=== PATIENT | male | born 1975 | race Caucasian/White ===

== ENCOUNTER 2016-08-10 00:16 | Emergency (ER) | payer OTHER ==
[2016-08-10 00:24] VITALS: TEMP 97.9
--- NOTE | 2016-08-10 00:27 | EDPHY ---
H & P Stated Complaint: choked on a pill Tues, ? aspiration. cough/URI x 2 wks. rt CP. HPI/ROS: HPI CHIEF COMPLAINT: Right-sided chest discomfort, worse with inspiration. HISTORY OF PRESENT ILLNESS: This patient is a very pleasant 41-year-old male denies any significant medical history does not take any daily medications, he presents to the emergency room with right-sided chest discomfort. Patient tells me that over the past 2 weeks he has been sick with an upper respiratory tract infection. Tells me specifically July 24 is when he developed cough , congestion and shortness of breath. At times he has been taking NyQuil. He states on Thursday he tells me took Mucinex pill and felt that the pill got stuck in the back of his throat he tells me he could feel it in the back of his throat for prolonged period of time (approximately 10 minutes) eventually he thinks he swallowed it. Patient tells me that for the past couple days he has had intermittent right-sided chest discomfort he describes as an ache and it is worse when he goes to lay flat in also worse when he takes a deep breath in. He has been coughing and has secretions he denies hemoptysis, yellow or green productive cough. He denies fever but has endorse chills. He also endorsed earlier in the week muscle aches and joint pain. No history of PE or DVT he does tell me that he has a history of a pneumothorax in high school he is unsure exactly what size. He tells me this does not feel like a recurrent pneumo. He denies arm pain, jaw pain, left-sided chest pain. Past Medical History: Pneumothorax Past Surgical History: chest tube for pneumothorax in high school Social History: denies daily use of tobacco, drugs, marijuana, alcohol he does endorse occasional alcohol use Family History: noncontributory ROS REVIEW OF SYSTEMS: A comprehensive 10 point review of systems is otherwise negative aside from elements mentioned in the history of present illness. Exam Constitutional triage nursing summary reviewed, vital signs reviewed, awake/ alert. Eyes normal conjunctivae and sclera, EOMI, PERRLA. HENT normal inspection, atraumatic, moist mucus membranes, no epistaxis, neck supple/ no meningismus, no raccoon eyes. Respiratory Specifically clear lungs bilaterally, good breath sounds right side , clear to auscultation bilaterally, normal breath sounds, no respiratory distress, no wheezing. Cardiovascular rate normal, regular rhythm, no murmur, no edema, distal pulses normal. Gastrointestinal soft, non-tender, no rebound, no guarding, normal bowel sounds, no distension, no pulsatile mass. Genitourinary no CVA tenderness. Musculoskeletal no midline vertebral tenderness, full range of motion, no calf swelling, no tenderness of extremities, no meningismus, good pulses, neurovascularly intact. Skin pink, warm, & dry, no rash, skin atraumatic. Neurologic awake, alert and oriented x 3, AAOx3, moves all 4 extremities equally, motor intact, sensory intact, CN II-XII intact, normal cerebellar, normal vision, normal speech. Psychiatric normal mood/affect. Heme/Lymph/Immune no lymphadenopathy. Differential Diagnosis: Includes but is not limited to in a particular order, upper respiratory tract infection, pneumothorax, pneumonia, pulmonary embolism, pill aspiration, doubt acute coronary syndrome, dehydration, electrolyte abnormality, influenza, pleurisy, pericarditis, myocarditis, pericardial effusion Medical Decision Making: this patient had an IV established obtain blood work, including electrolytes, patient had an EKG, chest x-ray, patient most likely need a CT angiogram of his chest rule pulmonary embolism and foreign body aspiration in his airway Re-evaluation: EKG interpretation by me on record in [employer] system. Impression time of EKG is 51, this EKG is sinus rhythm rate of 72, there is no ST elevation, ST depression, T-wave abnormality. ED x-ray chest two view this is negative for acute cardiopulmonary disease. Specifically no pneumothorax visualize, no foreign body seen, no opacification normal clear lung hathaway cardiac silhouette normal. Image interpreted by myself. CT scan of the angiogram chest. The results of the study are this is negative for pulmonary embolism however there is right middle lobe nodule left lower lobe nodule 1 cm in size the differential as fungal infection versus Kranthi's granuloma, metastatic disease The study was read by Dr. Cordova I viewed the images myself on the PACS system. 0220: the patient is resting comfortably here in emergency room in no acute distress. I went over her CT results with him. He understands he needs to follow up with pulmonology about these 2 lesions on his lungs. He does not have a pulmonary embolism is troponin is negative, his EKG is unremarkable for acute ischemia, do not have a great explanation for his right-sided pleuritic pain. There is no PE. His vital signs have been reviewed and are stable. He is comfortable going home. Source: Patient - Personal History Current Tetanus/Diphtheria Vaccine: Unsure Current Tetanus Diphtheria and Acellular Pertussis (TDAP): Unsure - Medical/Surgical History Hx Asthma: No Hx Chronic Respiratory Disease: No Hx Diabetes: No Hx Cardiac Disease: No Hx Renal Disease: No Hx Cirrhosis: No Hx Alcoholism: No Hx HIV/AIDS: No Hx Splenectomy or Spleen Trauma: No Other PMH: spontaneous pnumo 1994, wrist surgery, pericarditis years ago. - Social History Smoking Status: Never smoked Constitutional: Initial Vital Signs Temperature (C) 36.6 C 08/10/16 00:20 Heart Rate 80 08/10/16 00:20 Respiratory Rate 16 08/10/16 00:20 Blood Pressure 153/87 H 08/10/16 00:20 O2 Sat (%) 95 08/10/16 00:20 O2 Delivery Mode Room Air Allergies/Adverse Reactions: No Known Allergies Allergy (Verified 08/10/16 00:20) Home Medications: Medication Instructions Recorded Ibuprofen [Motrin (*)] 800 mg PO Q6-8PRN #30 tab 08/10/16 Medical Decision Making - Data Points Laboratory Results: Laboratory Results 08/10/16 00:45 08/10/16 00:36 08/10/16 08/10/16 08/10/16 00:45 00:40 00:36 WBC 10.59 H 10^3/uL (3.80-9.50) RBC 4.75 10^6/uL (4.40-6.38) Hgb 14.6 g/dL (13.7-17.5) Hct 42.2 % (40.0-51.0) MCV 88.8 fL (81.5-99.8) MCH 30.7 pg (27.9-34.1) MCHC 34.6 g/dL (32.4-36.7) RDW 11.0 L % (11.5-15.2) Plt Count 258 10^3/uL (150-400) MPV 9.6 fL (8.7-11.7) Neut % (Auto) 67.8 % (39.3-74.2) Lymph % (Auto) 19.5 % (15.0-45.0) [place] % (Auto) 7.7 % (4.5-13.0) Eos % (Auto) 4.3 % (0.6-7.6) Baso % (Auto) 0.4 % (0.3-1.7) Nucleat RBC Rel Count 0.0 % (0.0-0.2) Absolute Neuts (auto) 7.17 H 10^3/uL (1.70-6.50) Absolute Lymphs (auto) 2.07 10^3/uL (1.00-3.00) Absolute Monos (auto) 0.82 H 10^3/uL (0.30-0.80) Absolute Eos (auto) 0.46 H 10^3/uL (0.03-0.40) Absolute Basos (auto) 0.04 10^3/uL (0.02-0.10) Absolute Nucleated RBC 0.00 10^3/uL (0-0.01) Immature Gran % 0.3 % (0.0-1.1) Immature Gran # 0.03 10^3/uL (0.00-0.10) PT 13.5 SEC (12.0-15.0) INR 1.04 (0.83-1.16) APTT 27.7 SEC (23.0-38.0) D-Dimer 0.52 H ug/mLFEU (0.00-0.50) Sodium 144 mEq/L (134-144) Potassium 3.7 mEq/L (3.5-5.2) Chloride 105 mEq/L (97-110) Carbon Dioxide 24 mEq/l (22-31) Anion Gap 15 mEq/L (8-16) BUN 14 mg/dL (7-23) Creatinine 0.8 mg/dL (0.7-1.3) Estimated GFR > 60 Glucose 140 H mg/dL (70-100) Calcium 9.8 mg/dL (8.5-10.4) Magnesium 2.2 mg/dL (1.6-2.3) Total Bilirubin 0.7 mg/dL (0.1-1.4) Conjugated Bilirubin 0.2 mg/dL (0.0-0.5) Unconjugated Bilirubin 0.5 mg/dL (0.0-1.1) AST 33 IU/L (17-59) ALT 63 IU/L (21-72) Alkaline Phosphatase 108 IU/L (38-126) Creatine Kinase 82 IU/L (0-224) CK-MB (CK-2) Fraction < 0.22 ng/mL (0-3.19) Troponin I < 0.012 ng/mL (0-0.034) NT-Pro-B Natriuret Pep 37 pg/mL (0-125) Total Protein 8.0 g/dL (6.3-8.2) Albumin 4.4 g/dL (3.5-5.0) Lipase 59.0 IU/L (23-300) Medications Given: Discontinued Medications Sodium Chloride (Ns) 1,000 mls @ 0 mls/hr IV ONCE ONE PRN Reason: As Directed Stop: 08/10/16 00:37 Last Admin: 08/10/16 00:50 Dose: 1,000 mls Morphine Sulfate (Morphine) 4 mg IVP EDNOW ONE Stop: 08/10/16 00:37 Last Admin: 08/10/16 00:51 Dose: Not Given Ondansetron HCl (Zofran) 4 mg IVP EDNOW ONE Stop: 08/10/16 00:37 Last Admin: 08/10/16 00:51 Dose: Not Given Departure - Departure Disposition: Home, Routine, Self-Care Clinical Impression: Pulmonary nodule Condition: Good Instructions: Pleurisy (ED), Pulmonary Nodules (ED) Additional Instructions: 1. Please take ibuprofen for pain control. Return to the emergency room if he develops any worsening symptoms questions or concerns includes high fever, shortness of breath or severe pain. 2. Please follow up with pulmonology review her CT scan with them. Referrals: Demi Thomas MD [Primary Care Provider] - As per Instructions Carlos Keith MD [Medical Doctor] - As per Instructions Prescriptions: Ibuprofen [Motrin (*)] 800 mg PO Q6-8PRN #30 tab
[2016-08-10] MEDS ORDERED: ONDANSETRON 4 MG/2 ML VIAL IVP ONE (00:36)
[2016-08-10] MEDS ORDERED: NS 1,000 ML IV ONE (00:36)
[2016-08-10] MEDS ORDERED: IOPAMIDOL (ISOVUE 370) 100 ML BTL IV ONE (00:44)
--- NOTE | 2016-08-10 00:54 | CPEKG ---
Heart Rate: 72 RR Interval: 833 P-R Interval: 192 QRSD Interval: 96 QT Interval: 380 QTC Interval: 416 P [place]: 38 QRS [place]: 52 T Wave [place]: 19 EKG Severity - NORMAL ECG - EKG Impression: SINUS RHYTHM Electronically Signed By: Nirmal Britt 11-Aug-2016 04:14:35
[2016-08-10 01:07] LABS: % IMMATURE GRANULYOCYTES 0.3 % (0.0-1.1); ABSOLUTE IMMATURE GRANULOCYTES 0.03 10^3/uL (0.00-0.10); ADD DIFF? NO; ADD MORPH? NO; ADD SCAN? NO; ATYPICAL LYMPHOCYTE FLAG 20 (0-99); FRAGMENT RBC FLAG 0 (0-99); HEMATOCRIT 42.2 % (40.0-51.0); HEMOGLOBIN 14.6 g/dL (13.7-17.5); LEFT SHIFT FLG 0 (0-99); LIPEMIA HEMOLYSIS FLAG 90 (0-99); MEAN CELL HEMOGLOBIN 30.7 pg (27.9-34.1); MEAN CELL HEMOGLOBIN CONCENTR. 34.6 g/dL (32.4-36.7); MEAN CELL VOLUME 88.8 fL (81.5-99.8); MEAN PLATELET VOLUME 9.6 fL (8.7-11.7); PLATELET CLUMPS FLAG 0 (0-99); PLATELET COUNT 258 10^3/uL (150-400); RED BLOOD CELL COUNT 4.75 10^6/uL (4.40-6.38)
[2016-08-10 01:24] LABS: ANION GAP 15 mEq/L (8-16); CARBON DIOXIDE 24 mEq/l (22-31); CHLORIDE 105 mEq/L (97-110); CREATININE 0.8 mg/dL (0.7-1.3); GLUCOSE 140 mg/dL (70-100); POTASSIUM 3.7 mEq/L (3.5-5.2); SODIUM 144 mEq/L (134-144)
[2016-08-10 01:25] LABS: ALANINE AMINOTRANSFERASE 63 IU/L (21-72); ALBUMIN 4.4 g/dL (3.5-5.0); ALKALINE PHOSPHATASE 108 IU/L (38-126); ASPARTATE AMINOTRANSFERASE 33 IU/L (17-59); BILIRUBIN,TOTAL 0.7 mg/dL (0.1-1.4); BILIRUBIN-CONJUGATED 0.2 mg/dL (0.0-0.5); BILIRUBIN-UNCONJUGATED 0.5 mg/dL (0.0-1.1); CALCIUM 9.8 mg/dL (8.5-10.4); GLOMERULAR FILTRATION RATE > 60; MAGNESIUM 2.2 mg/dL (1.6-2.3)
[2016-08-10 01:38] LABS: APTT 27.7 SEC (23.0-38.0); INR 1.04 (0.83-1.16); PROTIME(PATIENT) 13.5 SEC (12.0-15.0)
[2016-08-10 01:41] LABS: TROPONIN I < 0.012 ng/mL (0-0.034)
[2016-08-10 01:50] LABS: CREATINE KINASE-MB FRACTION < 0.22 ng/mL (0-3.19)
[2016-08-10 03:02] VITALS: BP 133/102; PULSE 71; RESP 18; O2SAT 96
--- NOTE | 2016-08-10 10:38 | DX ---
PA and Lateral Chest X-ray 0034 hours History: Right-sided chest pain. History of pneumothorax. Possible aspiration. Comparison to prior chest x-ray study from July 14, 2014. Findings: Heart size and pulmonary vasculature are normal. The lungs are clear without infiltrates or effusions. There is no pneumothorax. The osseous structures are intact. Impression: Normal chest x-ray.
--- NOTE | 2016-08-10 14:20 | CT ---
CT Chest Angiogram August 10, 2016 Indication: Pleurisy. Technique: Thinly collimated multidetector helical CT imaging was performed through the chest while 75 mL of Isovue-370 were injected intravenously without complication. The images were then transferr ed to an independent workstation where multiplanar reconstructions were performed. Dose reduction adelaida hniques were utilized. Findings CT chest angiogram: The pulmonary arterial system is well opacified. No intraluminal filling defect s to suggest acute or chronic thrombopulmonary embolic disease. The thoracic aorta is normal caliber . No aneurysm or dissection. CT chest: Trace right pleural effusion measures less than 5 mm in thickness. No left-sided effusion o r pericardial effusion. Heart size is normal. A 1.5-cm fuzzy pulmonary nodule in the right middle lobe and fuzzy 1-cm groundglass nodule in the lef t lower lobe on image 146. Both have minimal adjacent groundglass opacities. No cavitation. Lungs are otherwise normal and well aerated. The airway is clear. No enlarged lymph node or mass present throughout the axilla, mediastinum, pulmonary prashant, or imaged portion of the upper abdomen. The bones are normal. Impression: 1. No evidence of thrombopulmonary embolic disease. 2. Fuzzy pulmonary nodules in the right middle lobe and lingula. Differential diagnosis includes vargas al infection such as coccidiomycosis or histoplasmosis, septic pulmonary emboli, inflammatory process such as Kranthi's granulomatosis, and malignancy such as hemorrhagic metastasis and lymphoproliferat briana disorder. Recommend pulmonary consultation and close follow-up. 3. Trace right effusion. 4. No lymphadenopathy or mass. The study was performed as an emergency on-call case and discussed by telephone with Dr. Britt at 2 :15 a.m. The final interpretation is concordant with the original communication.
== END 2016-08-10 03:01 | disposition home or self-care (01) ==
DX: R91.1 Solitary pulmonary nodule (principal)
CPT/HCPCS: J2405; Q9967

== ENCOUNTER → 2017-05-11 | Outpatient (CLI) | payer OTHER | LOC: FIMAGING 10:24 | PROVIDERS: ATTEND Physician Assistant Medical | DX: I34.1 Nonrheumatic mitral (valve) prolapse (principal); I10 Essential (primary) hypertension ==

== ENCOUNTER → 2017-05-11 | Outpatient (CLI) | payer OTHER | LOC: FIMAGING 10:22 | PROVIDERS: ATTEND Internal Medicine Pulmonary Disease | DX: Z13.6 Encounter for screening for cardiovascular disorders (principal); I10 Essential (primary) hypertension; R91.1 Solitary pulmonary nodule ==